=== PATIENT | male | born 1965 | race Caucasian/White ===

== ENCOUNTER 2018-02-02 06:59 | Day surgery (SDC) | payer BC ==
[2018-02-02] MEDS ORDERED: CEFAZOLIN 1 GM INJ ×2 (07:00→07:35)
[2018-02-02] MEDS ORDERED: SUCCINYLCHOLINE CHLORIDE 100 MG/5 ML SYG IV (07:00)
[2018-02-02] MEDS ORDERED: MIDAZOLAM 1 MG/ML 2 ML INJ (07:35)
[2018-02-02] MEDS ORDERED: LABETALOL HCL 20MG INJ (07:35)
[2018-02-02] MEDS ORDERED: ROCURONIUM 50 MG INJ (07:35)
[2018-02-02] MEDS ORDERED: ONDANSETRON 4 MG INJ (07:35)
[2018-02-02] MEDS ORDERED: FENTAnyl 50 MCG/ML VIAL ×2 (07:35→12:59)
[2018-02-02] MEDS ORDERED: SUGAMMADEX SODIUM 200 MG/2 ML VIAL IV (07:35)
[2018-02-02] MEDS ORDERED: DEXAMETHASONE 4 MG/ML 1 ML INJ (07:35)
[2018-02-02] MEDS ORDERED: PROPOFOL 20 ML (07:35)
[2018-02-02] MEDS ORDERED: GLYCOPYRROLATE 0.4 MG INJ (07:35)
[2018-02-02] MEDS ORDERED: NEOSTIGMINE 3 MG/3 ML SYRINGE (07:35)
[2018-02-02] MEDS: BUPIVACAINE 0.25%/EPI (SDV) 30 ML INJ (07:53)
[2018-02-02] MEDS: POLYMYXIN/BACITRACIN 1L IRRIG (07:57)
[2018-02-02] MEDS: THROMBIN 5000 UNIT VIAL (07:57)
[2018-02-02] MEDS ORDERED: GELATIN SIZE 100 SPONGE (07:57)
[2018-02-02] MEDS ORDERED: CEFAZOLIN 2 GM/50 ML (PMX) 50 ML IVPB (08:30)
[2018-02-02] MEDS ORDERED: LACTATED RINGER'S 1,000 ML IV* (08:30)
[2018-02-02] MEDS ORDERED: NALOXONE (0.4 MG/ML) INJ IV (12:30)
[2018-02-02] MEDS ORDERED: ACETAMINOPHEN 325 MG TAB PO (12:30)
[2018-02-02] MEDS ORDERED: PROCHLORPERAZINE 10 MG TAB PO (12:30)
[2018-02-02] MEDS ORDERED: HYDROCODONE/APAP (5/325) TAB PO (12:30)
[2018-02-02] MEDS ORDERED: ONDANSETRON 4 MG INJ IV ×2 (12:30→13:00)
[2018-02-02] MEDS ORDERED: NACL 0.9% 3 ML SYG IV (12:30)
[2018-02-02] MEDS ORDERED: ALBUTEROL 0.083% (NEB) 2.5 MG/3 ML AMP HHN (13:00)
[2018-02-02] MEDS ORDERED: TRIMETHOBENZAMIDE 100 MG/ML VIAL IM (13:00)
[2018-02-02] MEDS ORDERED: MEPERIDINE 25 MG INJ IV (13:00)
[2018-02-02] MEDS ORDERED: IPRATROPIUM (NEB) 0.5 MG/2.5 ML AMP HHN (13:00)
[2018-02-02] MEDS ORDERED: EPHEDrine SULFATE 50 MG/5 ML SYG IV (13:00)
[2018-02-02] MEDS ORDERED: hydrALAzine 20 MG INJ IV (13:00)
[2018-02-02] MEDS ORDERED: LABETALOL HCL 20MG INJ IV (13:00)
[2018-02-02] MEDS ORDERED: HYDROmorphONE 1 MG/5 ML IV SYRINGE IV ×3 (13:00)
[2018-02-02] MEDS ORDERED: OXYCODONE/ACETAMINOPHEN (5/325) TAB PO ×2 (13:00)
[2018-02-02] MEDS ORDERED: MIDAZOLAM 1 MG/ML 2 ML INJ IV (13:00)
[2018-02-02] MEDS ORDERED: DIPHENHYDRAMINE 50 MG INJ IV (13:00)
[2018-02-02] MEDS ORDERED: FENTAnyl 50 MCG/ML VIAL IV ×2 (13:00)
[2018-02-02] MEDS: FENTAnyl 50 MCG/ML VIAL IV (14:15)
[2018-02-02] MEDS: HYDROCODONE/APAP (5/325) TAB PO (14:16)
== END 2018-02-02 16:16 | disposition home or self-care (01) ==
LOC: REC 06:59 → SDS 06:59
DX: M51.16 Intervertebral disc disorders with radiculopathy, lumbar region (principal); M48.062 Spinal stenosis, lumbar region with neurogenic claudication; E66.01 Morbid (severe) obesity due to excess calories; E11.9 Type 2 diabetes mellitus without complications; E03.9 Hypothyroidism, unspecified; Z68.38 Body mass index [BMI] 38.0-38.9, adult; I10 Essential (primary) hypertension
CPT/HCPCS: 63030; 71045; 72110; 82962; 86850; 86900; 86901; 88304; 97161

== ENCOUNTER 2018-10-29 10:08 | Inpatient (IN) | payer BC ==
[2018-10-29] MEDS ORDERED: ONDANSETRON 4 MG INJ IV (11:30)
[2018-10-29] MEDS ORDERED: ACETAMINOPHEN 325 MG TAB PO (11:30)
[2018-10-29] MEDS ORDERED: GLUCOSE GEL 15 GRAM TUBE PO ×2 (13:00)
[2018-10-29] MEDS ORDERED: GLUCAGON 1 MG INJ IM (13:00)
[2018-10-29] MEDS ORDERED: OXYCODONE/ACETAMINOPHEN (5/325) TAB PO (13:00)
[2018-10-29] MEDS ORDERED: NACL 0.9% 3 ML SYG IV (13:00)
[2018-10-29] MEDS ORDERED: DEXTROSE 50% 50 ML SYRINGE IV ×2 (13:00)
[2018-10-29] MEDS ORDERED: morphine 2 MG INJ IV (13:00)
[2018-10-29] MEDS ORDERED: GLUCOSE GEL 15 GRAM TUBE BUCCAL (13:00)
[2018-10-29] MEDS: GABAPENTIN 300 MG CAP PO (13:34)
[2018-10-29] MEDS: SOD CHLORIDE 0.45% 1,000 ML IV (13:35)
[2018-10-29 15:10] LABS: ADD MAN DIFF? NO
[2018-10-29 15:12] LABS: BASOPHILS % 0.4 % (0.0-2.0); EOSINOPHILS # 0.2 10^3/ul (0.0-0.5); EOSINOPHILS % 2.4 % (0.0-7.0); HEMATOCRIT 48.5 % (42.0-52.0); HEMOGLOBIN 15.7 g/dl (14.0-18.0); LYMPHOCYTES # 2.1 10^3/ul (0.8-2.9); LYMPHOCYTES % 25.9 % (15.0-51.0); MEAN CORPUSCULAR HEMOGLOBIN 27.7 pg (29.0-33.0); MEAN CORPUSCULAR HGB CONC 32.4 g/dl (32.0-37.0); MEAN CORPUSCULAR VOLUME 85.7 fl (82.0-101.0); MEAN PLATELET VOLUME 12.2 fl (7.4-10.4); MONOCYTE # 0.5 10^3/ul (0.3-0.9); MONOCYTES % 6.2 % (0.0-11.0); NEUTROPHIL # 5.4 10^3/ul (1.6-7.5); NEUTROPHILS % 64.9 % (39.0-77.0); PLATELET COUNT 192 10^3/UL (140-415); RED BLOOD COUNT 5.66 10^6/ul (4.70-6.10); RED CELL DISTRIBUTION WIDTH 15.3 % (11.5-14.5)
[2018-10-29 15:12] LABS: WHITE BLOOD COUNT 8.3 10^3/ul (4.8-10.8)
[2018-10-29 15:27] LABS: HEMOGLOBIN A1C 10.2 % (0-5.9)
[2018-10-29 15:30] LABS: ALANINE AMINOTRANSFERASE 26 IU/L (13-69); ALBUMIN 4.3 g/dl (3.3-4.9); ALKALINE PHOSPHATASE 99 IU/L (42-121); ANION GAP 13 (5-13); ASPARTATE AMINO TRANSFERASE 22 IU/L (15-46); BILIRUBIN,INDIRECT 0.3 mg/dl (0-1.1); BILIRUBIN,TOTAL 0.3 mg/dl (0.2-1.3); BLOOD UREA NITROGEN 14 mg/dl (7-20); CALCIUM 9.8 mg/dl (8.4-10.2); CARBON DIOXIDE 27 mmol/L (21-31); CHLORIDE 99 mmol/L (97-110); CREATININE 0.66 mg/dl (0.61-1.24); Estimated GFR > 60 mL/min (>60); GLUCOSE 116 mg/dl (70-220); POTASSIUM 4.3 mmol/L (3.5-5.1); SODIUM 139 mmol/L (135-144); TOTAL PROTEIN 7.6 g/dl (6.1-8.1)
[2018-10-29] MEDS: INSULIN ASPART [NOVOLOG] 3 ML PEN SC (17:24)
[2018-10-29] MEDS ORDERED: INSULIN GLARGINE [LANTus] (100 UNITS/ML) SYG SC (20:00)
[2018-10-30] MEDS ORDERED: PANTOPRAZOLE (EC) 40 MG TAB PO (06:00)
== END 2018-10-29 20:10 | disposition left against medical advice (07) | DRG 445 ==
LOC: E/R 10:08 → 5EC 11:23
DX: K80.20 Calculus of gallbladder without cholecystitis without obstruction (principal); Z68.41 Body mass index [BMI] 40.0-44.9, adult; E66.9 Obesity, unspecified; E11.9 Type 2 diabetes mellitus without complications
CPT/HCPCS: 80053; 82962; 83036; 85025; 99285-25